=== PATIENT | male | born 1955 | race African-American/Black ===

== ENCOUNTER 2019-05-02 09:04 | Emergency (ER) | payer SELFPAY ==
[~2019-05-02] VITALS: Ht 195.6 cm; Wt 79.4 kg
--- NOTE | 2019-05-02 09:05 | NUR ---
ED Nurse Note: Patient BIBA after being found intoxicated on [address] on [address]. EMS stated there was an empty vodka bottle next to the patient. Patient slurring and speaking incoherently. Unable to answer questions. No s/s of acute distress. Blood and urine sent to lab.
[2019-05-02] MEDS ORDERED: Thiamine HCl 100 MG in D5W 55 ML IVPB STA (09:08)
[2019-05-02 09:10] VITALS: BP 136/79
--- NOTE | 2019-05-02 09:15 | NUR ---
ED Nurse Note: Patient attempting to hit staff when trying to get labwork. Dr. Jacinto notified that patient may not sit still for CT. Versed ordered by Dr. Jacinto.
--- NOTE | 2019-05-02 09:17 | Emergency Room Report ---
History of Present Illness General Chief Complaint: Altered Level of Consciousness Source: EMS (Josef Jacinto MD) Present Illness HPI Patient brought in by EMS. Bystanders called them because the patient had altered level of consciousness. They alleged that he has been drinking. There is no signs of trauma and there was no history of trauma. The patient is edentulous and difficult to understand. Paramedics recognized the patient. Accu-Chek in the field was normal. Further history unobtainable. (Josef Jacinto MD) Allergies: Coded Allergies: UNABLE TO ASSESS (Unverified , 05/02/19) Patient History Limited by: medical condition Past Medical History: see triage record Social History: Reports: alcohol use Social History Narrative Possibly homeless Reviewed Nursing Documentation: PMH: Agreed; PSxH: Agreed (Josef Jacinto MD) Nursing Documentation-PMH Past Medical History Deferred: Pt Cognitively Impaired (Josef Jacinto MD) Review of Systems All Other Systems: limited (Josef Jacinto MD) Physical Exam Vital Signs Date Time Temp Pulse Resp B/P (MAP) Pulse Ox O2 Delivery O2 Flow Rate FiO2 05/02/19 08:57 98.8 76 18 136/79 (98) 96 Room Air Sp02 EP Interpretation: reviewed, normal General Appearance: non-toxic, lethargic, other - Smells of alcohol and slurring words Head: normocephalic, atraumatic Eyes: bilateral eye PERRL, bilateral eye EOMI - Some nystagmus, bilateral eye Scleral Injection ENT: moist mucus membranes - Dentulous Neck: full range of motion, supple, no bony tend Respiratory: chest non-tender, lungs clear, normal breath sounds Cardiovascular #1: regular rate, rhythm Cardiovascular #2: 2+ radial (R) Gastrointestinal: normal inspection, non tender, no mass, non-distended, decreased bowel sounds Genitourinary: no CVA tenderness Musculoskeletal: back normal, normal range of motion Neurologic: motor strength/tone normal, DTRs symmetric, sensory intact, nystagmus, other - Ataxia and slurred speech Psychiatric: other - Babbling and poorly following commands Skin: other - Disheveled (Josef Jacinto MD) Medical Decision Making Diagnostic Impression: Primary Impression: Alcohol intoxication Qualified Codes: F10.920 - Alcohol use, unspecified with intoxication, uncomplicated ER Course Patient brought in with a lethargy and possible alcohol ingestion. Differential includes brain bleed, electrolyte imbalance, acute myocardial infarction, occult infection, alcohol intoxication, other substance abuse amongst others. Patient evaluated with EKG, CT of the head, chest x-ray and labs. Treatment with thiamine and IV hydration. Repeat evaluations necessary. EKG NSR LAD RBBB. Chest x-ray no infiltrates some reversal of flow. Labs with normal white count slight anemia slight elevated sodium and elevated blood alcohol with positive THC. Versed ordered for CT. Versed not needed in CT. CT no bleed Patient more awake. Still cannot tell me his name (or in an intelligible manner ). [id number] patient sleeping. Still would not say his name. Patient signed out to Dr. Pillai. Laboratory Tests Test 05/02/19 09:30 05/02/19 10:22 05/02/19 11:10 White Blood Count 5.7 K/UL (4.8-10.8) Red Blood Count 4.39 M/UL (4.70-6.10) L Hemoglobin 11.2 G/DL (14.2-18.0) L Hematocrit 36.3 % (42.0-52.0) L Mean Corpuscular Volume 83 FL (80-99) Mean Corpuscular Hemoglobin 25.6 PG (27.0-31.0) L Mean Corpuscular Hemoglobin Concent 30.9 G/DL (32.0-36.0) L Red Cell Distribution Width 16.8 % (11.6-14.8) H Platelet Count 474 K/UL (150-450) H Mean Platelet Volume 4.9 FL (6.5-10.1) L Neutrophils (%) (Auto) % (45.0-75.0) Lymphocytes (%) (Auto) % (20.0-45.0) Monocytes (%) (Auto) % (1.0-10.0) Eosinophils (%) (Auto) % (0.0-3.0) Basophils (%) (Auto) % (0.0-2.0) Differential Total Cells Counted 100 Neutrophils % (Manual) 23 % (45-75) L Lymphocytes % (Manual) 60 % (20-45) H Monocytes % (Manual) 3 % (1-10) Eosinophils % (Manual) 13 % (0-3) H Basophils % (Manual) 1 % (0-2) Band Neutrophils 0 % (0-8) Platelet Estimate Adequate Platelet Morphology Normal Hypochromasia 1+ Anisocytosis 1+ Sodium Level 150 MMOL/L (136-145) H Potassium Level 5.0 MMOL/L (3.5-5.1) Chloride Level 110 MMOL/L (98-107) H Carbon Dioxide Level 24 MMOL/L (21-32) Anion Gap 16 mmol/L (5-15) H Blood Urea Nitrogen 12 mg/dL (7-18) Creatinine 0.7 MG/DL (0.55-1.30) Estimate Glomerular Filtration Rate > 60 mL/min (>60) Glucose Level 90 MG/DL (74-106) Calcium Level 8.5 MG/DL (8.5-10.1) Total Bilirubin 0.4 MG/DL (0.2-1.0) Aspartate Amino Transferase (AST) 36 U/L (15-37) Alanine Aminotransferase (ALT) 21 U/L (12-78) Alkaline Phosphatase 89 U/L (46-116) Total Creatine Kinase 118 U/L (26-308) Troponin I 0.007 ng/mL (0.000-0.056) Total Protein 8.1 G/DL (6.4-8.2) Albumin 2.9 G/DL (3.4-5.0) L Globulin 5.2 g/dL Albumin/Globulin Ratio 0.6 (1.0-2.7) L Salicylates Level 1.4 ug/mL (2.8-20) L Acetaminophen Level < 2 MCG/ML (10-30) L Serum Alcohol 298 mg/dL Urine Color Pale yellow Urine Appearance Clear Urine pH 5 (4.5-8.0) Urine Specific [place] 1.010 (1.005-1.035) Urine Protein Negative (NEGATIVE) Urine Glucose (UA) Negative (NEGATIVE) Urine Ketones Negative (NEGATIVE) Urine Blood Negative (NEGATIVE) Urine Nitrite Negative (NEGATIVE) Urine Bilirubin Negative (NEGATIVE) Urine Urobilinogen Normal MG/DL (0.0-1.0) Urine Leukocyte Esterase Negative (NEGATIVE) Urine Opiates Screen Negative (NEGATIVE) Urine Barbiturates Screen Negative (NEGATIVE) Phencyclidine (PCP) Screen Negative (NEGATIVE) Urine Amphetamines Screen Negative (NEGATIVE) Urine Benzodiazepines Screen Negative (NEGATIVE) Urine Cocaine Screen Negative (NEGATIVE) Urine Marijuana (THC) Screen Positive (NEGATIVE) H (Josef Jacinto MD) ER Course Reevaluation 4:18 PM patient is sober, gait is normal patient walked to the bathroom without any issues patient states he drank too much Disposition home with return precautions follow-up with PCP (Jorje Pillai MD) EKG Diagnostic Results Rate: normal Rhythm: NSR ST Segments: no acute changes - Left axis deviation right bundle branch block (Josef Jacinto MD) Rhythm Strip Diag. Results EP Interpretation: yes Rhythm: NSR, no PVC's, no ectopy (Josef Jacinto MD) Chest X-Ray Diagnostic Results Chest X-Ray Diagnostic Results : Chest X-Ray Ordered: Yes # of Views/Limited/Complete: 1 View Indication: Other EP Interpretation: Yes Interpretation: no effusion, no pneumothorax, other - slight reversal flow Impression: Other Electronically Signed by: Electronically signed by Josef Jacinto MD (Josef Jacinto MD) CT/MRI/US Diagnostic Results CT/MRI/US Diagnostic Results : Imaging Test Ordered: Head Impression Involutional changes no bleed (Josef Jacinto MD) Last Vital Signs Date Time Temp Pulse Resp B/P (MAP) Pulse Ox O2 Delivery O2 Flow Rate FiO2 05/02/19 09:10 98.8 81 18 136/79 96 Room Air Status: improved (Josef Jacinto MD) Disposition: HOME, SELF-CARE Condition: Stable Patient Instructions: Alcohol Intoxication, [id number] Additional Instructions: The patient was provided with discharge instructions, notified to follow-up with a primary care doctor and or specialist in the next 24-48 hours, and to return to the ED if they have worsening of their symptoms. Please note that this report is being documented using [employer] technology. This can lead to erroneous entry secondary to incorrect interpretation by the dictating instrument. Josef Jacinto MD May 02, 2019 09:17 Jorje Pillai MD May 02, 2019 16:19
[2019-05-02] MEDS ORDERED: Midazolam 2mg/2ml Inj IVP ONE (09:30)
--- NOTE | 2019-05-02 09:41 | NUR ---
ED Nurse Note: Blood drawn and sent to lab.
[2019-05-02 09:57] LABS: HEMATOCRIT 36.3 % (42.0-52.0); HEMOGLOBIN 11.2 G/DL (14.2-18.0); MEAN CORPUSCULAR VOLUME 83 FL (80-99); PLATELET COUNT 474 K/UL (150-450); RED BLOOD COUNT 4.39 M/UL (4.70-6.10); RED CELL DISTRIBUTION WIDTH 16.8 % (11.6-14.8); WHITE BLOOD COUNT 5.7 K/UL (4.8-10.8)
--- NOTE | 2019-05-02 10:00 | NUR ---
ED Nurse Note: Patient straight-cathed, urine sent to lab.
--- NOTE | 2019-05-02 10:30 | NUR ---
ED Nurse Note: Patient stayed still for CT, Versed not given. Dr. Jacinto notified.
[2019-05-02 11:00] VITALS: BP 138/82
[2019-05-02 11:18] LABS: ANION GAP 16 mmol/L (5-15); BLOOD UREA NITROGEN 12 mg/dL (7-18); CALCIUM 8.5 MG/DL (8.5-10.1); CARBON DIOXIDE 24 MMOL/L (21-32); CHLORIDE 110 MMOL/L (98-107); CREATININE 0.7 MG/DL (0.55-1.30); SODIUM 150 MMOL/L (136-145)
[2019-05-02 11:24] LABS: ALANINE AMINOTRANSFERASE 21 U/L (12-78); ALBUMIN 2.9 G/DL (3.4-5.0); ALBUMIN/GLOBULIN RATIO 0.6 (1.0-2.7); ALKALINE PHOSPHATASE 89 U/L (46-116); ASPARTATE AMINO TRANSFERASE 36 U/L (15-37); BILIRUBIN,TOTAL 0.4 MG/DL (0.2-1.0); CREATINE KINASE 118 U/L (26-308)
[2019-05-02 11:40] LABS: APPEARANCE,URINE CLEAR; BILIRUBIN, URINE NEGATIVE (NEGATIVE); COLOR,URINE PALE YELLOW; GLUCOSE, URINE (UA) NEGATIVE (NEGATIVE); KETONES,URINE NEGATIVE (NEGATIVE); LEUKOCYTE ESTERASE ,URINE NEGATIVE (NEGATIVE); NITRITE,URINE NEGATIVE (NEGATIVE); PH,URINE 5 (4.5-8.0); PROTEIN,URINE NEGATIVE (NEGATIVE); UROBILINOGEN,URINE NORMAL MG/DL (0.0-1.0)
--- NOTE | 2019-05-02 11:55 | Diagnostic Imaging Report ---
EXAM: CT Head Without Intravenous Contrast CLINICAL HISTORY: ALOC TECHNIQUE: Axial computed tomography images of the head/brain without intravenous contrast. CTDI is 53.4 mGy and DLP is 1179.1 mGy-cm. One or more of the following dose reduction techniques were used: automated exposure control, adjustment of the mA and/or kV according to patient size, use of iterative reconstruction technique. COMPARISON: None FINDINGS: Brain: No acute infarct or hemorrhage identified. No extra-axial fluid collection. No mass effect or midline shift. Scattered areas of hypoattenuation in the supratentorial white matter likely represent chronic small vessel ischemic changes. Ventricles and sulci: Prominence of the ventricles and sulci is likely secondary to cerebral volume loss. Bones: Normal. No bony lesion or fracture. Subcutaneous tissues: Normal. Sinuses: Small polyp versus mucous retention cyst in the right maxillary sinus. Mastoid air cells: Normal. Orbits: Grossly unremarkable. Other: Atherosclerotic calcifications in the intracranial vasculature. Cerumen in the external auditory canals. IMPRESSION: 1. No acute intracranial abnormality. 2. Mild chronic small vessel ischemic changes and cerebral volume loss.
--- NOTE | 2019-05-02 12:15 | NUR ---
ED Nurse Note: Patient resting in bed, no s/s of acute distress.
--- NOTE | 2019-05-02 12:23 | Diagnostic Imaging Report ---
EXAM: XR Chest, 1 View CLINICAL HISTORY: ALOC TECHNIQUE: Frontal view of the chest. COMPARISON: None FINDINGS: Hardware: None. Lungs/pleura: Mild prominence of the central lung markings. No focal consolidation. No pleural effusion or pneumothorax. Heart/mediastinum: Normal. No cardiomegaly. Soft tissues: Unremarkable. Bones: No acute fracture. Upper abdomen: Normal. IMPRESSION: Mild prominence of the central lung markings could represent pulmonary vasculature congestion or bronchitis.
[2019-05-02 13:05] VITALS: BP 135/81
[2019-05-02 17:15] VITALS: BP 136/79
--- NOTE | 2019-05-02 17:15 | NUR ---
ER DISCHARGE NOTE: Patient cleared for DC by Dr. Pillai. Patient AxO x 4, no s/s of acute distress. Patient verbalized understanding of DC instructions. Patient refused to do Mini-Cog and sign DC papers. Patient ID band removed. Able to ambulate with steady gait, took all belongings.
== END 2019-05-02 17:15 | disposition home or self-care (01) ==
LOC: EDBD 09:04 → EMR 09:20
DX: F10.920 Alcohol use, unspecified with intoxication, uncomplicated (principal); Y90.8 Blood alcohol level of 240 mg/100 ml or more
CPT/HCPCS: 36415; 70450; 71045; 80053; 80307; 81003; 82550; 84484; 85007; 85025; 93005; 96361; 96365; 99284; G0480; J7030; J2250